=== PATIENT | male | born 2000 | race Caucasian/White ===

== ENCOUNTER 2023-11-19 18:35 | Emergency (ER) | payer OTHER ==
[2023-11-19 18:47] VITALS: BMI 36.5
[2023-11-19 20:16] LABS: BASO % 0.4 % (0-2.0); EOS % 0.3 % (0-4.5); HEMATOCRIT 44.7 % (35.4-49); HEMOGLOBIN 15.4 GM/dL (11.7-16.9); LYMPH % 18.9 % (8-40); MCH 28.6 pg (25.7-33.7); MCHC 34.5 g/dl (32.0-35.9); MEAN CELL VOLUME 82.9 fl (80-96); MEAN PLT VOLUME 8.7 fl (7.5-11.1); MONO % 5.2 % (3.8-10.2); NEUT % 75.2 % (42.8-82.8); PLATELET COUNT 231 10^3/uL (134-434); RBC 5.39 M/mm3 (4.00-5.60); RDW 14.1 % (11.9-15.9); WHITE BLOOD COUNT 13.5 K/mm3 (4.0-10.0)
[2023-11-19 20:47] LABS: POTASSIUM 3.7 mmol/L (3.5-5.1)
[2023-11-19 20:49] LABS: CALCIUM 9.4 mg/dL (8.5-10.1)
[2023-11-19 20:50] LABS: ALBUMIN 4.4 g/dl (3.4-5.0); BLOOD UREA NITROGEN 20.5 mg/dL (7-18)
[2023-11-19 20:53] LABS: CREATININE 0.8 mg/dL (0.55-1.3)
[2023-11-19 20:54] LABS: TOT PROT 7.7 g/dl (6.4-8.2)
[2023-11-19 20:55] LABS: BILIRUBIN,TOTAL 0.4 mg/dL (0.2-1)
[2023-11-19 21:27] VITALS: BP 136/79; PULSE 95; RESP 18; TEMP 98.2
== END 2023-11-19 21:57 | disposition home or self-care (01) ==
LOC: JERFT 18:35 → JER 18:35
DX: R07.89 Other chest pain (principal); V49.40XA Driver injured in collision with unspecified motor vehicles in traffic accident, initial encounter
CPT/HCPCS: 36415; 70450-TC; 71260-TC; 72125-TC; 74177-TC; 80053; 83690; 84484; 85025; 86850; 86900; 86901; 93005; 93010; 99285-25; Q9967